=== PATIENT | male | born 1935 | race Caucasian/White ===

== ENCOUNTER 2017-03-27 02:50 | Emergency (ER) | payer OTHER ==
[2017-03-27 04:19] LABS: BLOOD UREA NITROGEN 23 mg/dl (7-18); CARBON DIOXIDE 26 mmol/L (21-32); CHLORIDE 110 mmol/L (98-107); GLUCOSE 92 mg/dl (70-99); POTASSIUM 4.1 mmol/L (3.5-5.1); SODIUM 142 mmol/L (136-145); URIC ACID 5.1 mg/dl (2.6-7.2)
[2017-03-27 04:19] LABS: MANUAL MICROSCOPIC REQUIRED? NO; REVIEW REQ? NO; URINE APPEARANCE CLEAR (CLEAR); URINE BILIRUBIN NEG (NEG); URINE COLOR YELLOW; URINE EPITHELIAL CELL AUTO 0-5 /lpf (0-5); URINE NITRITE NEG (NEG); URINE SPECIFIC GRAVITY 1.024 (1.000-1.030); UROBILINOGEN NEG (NEG); ZZUR CULT IF INDIC CLEAN CATCH NO
[2017-03-27 04:23] LABS: CALCIUM 8.6 mg/dl (8.5-10.1)
[2017-03-27 04:27] LABS: BASO % 0.4 %; BASO ABS # 0.02 K/uL (0-0.2); COMPLETE YES; EOS % 2.6 %; HEMATOCRIT 43.6 % (42-52); IG% 0.2 %; LYMPH % 24.9 %; LYMPH ABS # 1.24 K/uL (1.2-3.4); MEAN CELL VOLUME 91.4 fL (80-100); MEAN CORPUSCULAR HEMOGLOBIN 30.4 pg (25-34); MEAN CORPUSCULAR HGB CONC 33.3 g/dl (32-36); MEAN PLATELET VOLUME 10.9 fL (7.4-10.4); MONO % 15.7 %; NEUT % 56.2 %; PLATELET COUNT 192 K/uL (130-400); RED BLOOD COUNT 4.77 M/uL (4.7-6.1); WHITE BLOOD COUNT 4.98 K/uL (4.8-10.8)
--- NOTE | 2017-03-27 04:46 | EMERGENCY ROOM VISIT NOTE ---
History First contact with patient: 03:33 Chief Complaint: BACK PAIN Stated Complaint: BACK PAIN, STOMACH UPSET History of Present Illness The patient is a 81 year old male who presents to the Emergency Room with complaints of sudden onset of right flank pain described as aching, ranging in severity was 8/ 10 that is now completely resolved that occurred 1 hour ago. Patient took Motrin and then on his drive here the pain subsided. Patient states the past few days she's had some upset stomach but none currently. No history kidney stones. Patient denies chest pain, dyspnea, fever, chills, numbness, tingling, diaphoresis, radiating pain, fevers, injury to the area, light headedness or dizziness. No syncope. Patient was doing a lot of yard work today. He states is a very active addi. Review of Systems See HPI for pertinent positives & negatives. A total of 10 systems reviewed and were otherwise negative. Past Medical/Surgical History gout Social History Smoking Status: Never Smoker Smokeless Tobacco Use: No Drug Use: none Marital Status: Housing Status: lives with family Occupation Status: retired Physical Exam Physical Exam VITALS: Vitals are noted on the nurse's note and reviewed by myself. Vital signs hypertensive. GENERAL: Pleasant male, in no acute distress, nondiaphoretic, well-developed well-nourished. SKIN: The skin was without rashes, erythema, edema, or bruising. There is no tenting of the skin. Capillary reflex less than 2 seconds. HEAD: Normocephalic atraumatic. EARS: External auditory canals clear, tympanic membranes pearly martin without erythema or effusion bilaterally. EYES: Pupils equal round and reactive to light and accommodation. Conjunctivae without injection, sclerae without icterus. Extraocular movements intact. NOSE: Patent, turbinates without inflammation or discharge. MOUTH: Mucous membranes moist. Pharynx without erythema or exudate. Uvula midline. Airway patent. Tongue does not deviate. NECK: Supple without nuchal rigidity. No lymphadenopathy. No thyromegaly. Cervical spine is nontender. No JVD. HEART: Regular rate and rhythm LUNGS: Clear to auscultation bilaterally without wheezes, rales or rhonchi. No dullness to percussion. No retractions or accessory muscle use. ABDOMEN: Positive bowel sounds x 4. Normal tympanic percussion. Soft, nontender, without masses or organomegaly. Jamil sign negative. No guarding or rebound tenderness. MUSCULOSKELETAL: No muscle atrophy, erythema, or edema noted. No thoracic or lumbar tenderness on exam. No CVA tenderness. 5 out of 5 strength throughout NEURO: Patient was alert and oriented to person place and time. Normal sensation to light and sharp touch. No focal neurological deficits. Medical Decision & Procedures Laboratory Results 03/27/17 03:30 Red Blood Count 4.77, Mean Corpuscular Volume 91.4, Mean Corpuscular Hemoglobin 30.4, Mean Corpuscular Hemoglobin Concent 33.3, Mean Platelet Volume 10.9, Neutrophils (%) (Auto) 56.2, Lymphocytes (%) (Auto) 24.9, Monocytes (%) (Auto) 15.7, Eosinophils (%) (Auto) 2.6, Basophils (%) (Auto) 0.4, Neutrophils # (Auto ) 2.80, Lymphocytes # (Auto) 1.24, Monocytes # (Auto) 0.78, Eosinophils # (Auto ) 0.13, Basophils # (Auto) 0.02 03/27/17 03:34 Test 03/27/17 03:30 03/27/17 03:34 White Blood Count 4.98 K/uL (4.8-10.8) Red Blood Count 4.77 M/uL (4.7-6.1) Hemoglobin 14.5 g/dL (14.0-18.0) Hematocrit 43.6 % (42-52) Mean Corpuscular Volume 91.4 fL (80-100) Mean Corpuscular Hemoglobin 30.4 pg (25-34) Mean Corpuscular Hemoglobin Concent 33.3 g/dl (32-36) Platelet Count 192 K/uL (130-400) Mean Platelet Volume 10.9 fL (7.4-10.4) Neutrophils (%) (Auto) 56.2 % Lymphocytes (%) (Auto) 24.9 % Monocytes (%) (Auto) 15.7 % Eosinophils (%) (Auto) 2.6 % Basophils (%) (Auto) 0.4 % Neutrophils # (Auto) 2.80 K/uL (1.4-6.5) Lymphocytes # (Auto) 1.24 K/uL (1.2-3.4) Monocytes # (Auto) 0.78 K/uL (0.11-0.59) Eosinophils # (Auto) 0.13 K/uL (0-0.5) Basophils # (Auto) 0.02 K/uL (0-0.2) RDW Standard Deviation 44.0 fL (36.4-46.3) RDW Coefficient of Variation 13.3 % (11.5-14.5) Immature Granulocyte % (Auto) 0.2 % Immature Granulocyte # (Auto) 0.01 K/uL (0.00-0.02) Urine Color YELLOW Urine Appearance CLEAR (CLEAR) Urine pH 5.0 (4.5-7.5) Urine Specific [employer] 1.024 (1.000-1.030) Urine Protein NEG (NEG) Urine Glucose (UA) NEG (NEG) Urine Ketones NEG (NEG) Urine Occult Blood 3+ (NEG) Urine Nitrite NEG (NEG) Urine Bilirubin NEG (NEG) Urine Urobilinogen NEG (NEG) Urine Leukocyte Esterase NEG (NEG) Urine WBC (Auto) 1-5 /hpf (0-5) Urine RBC (Auto) >30 /hpf (0-4) Urine Hyaline Casts (Auto) 0 /lpf (0-5) Urine Epithelial Cells (Auto) 0-5 /lpf (0-5) Urine Bacteria (Auto) NEG (NEG) Anion Gap 6.0 mmol/L (3-11) Estimated GFR () 82.6 Estimated GFR (Non- 71.3 BUN/Creatinine Ratio 23.0 (10-20) Uric Acid 5.1 mg/dl (2.6-7.2) Calcium Level 8.6 mg/dl (8.5-10.1) ED Course Prior records/ancillary studies reviewed. Triage Nursing notes reviewed. Additional history obtained from the family. The patient's history was concerning for right flank pain. Differential diagnosis: Etiologies such as renal colic, appendicitis, diverticulitis, mesenteric ischemia, aortic pathology, infections, inflammatory bowel disease, PUD, biliary pathology, UTI, as well as others were entertained. Physical examination findings: As above. ER treatment provided: Patient was observed On reassessment the patient felt better. Diagnostic interpretation by me: The labs revealed stable H&H. Urinalysis revealed hematuria. There was no sign of UTI. Imaging studies: CT of the abdomen and pelvis as above. CT ABDOMEN & PELVIS: Impression: There is a 4 mm calculus within the right UPJ which causes mild hydronephrosis. No other calculi seen with the kidneys, ureters or urinary bladder. Additional findings: The visualized lower thorax is unremarkable. The liver, gallbladder, spleen, pancreas, and adrenal glands are unremarkable. The appendix is unremarkable. Noninflamed colonic diverticulosis. No acute osseous abnormality. Radiologist: Merritt Cuba MD It appears that the patient has isolated renal colic from a right sided stone. Patient was neurovascularly and neurologically intact. He is well-appearing. His pain was managed. He was advised to follow-up with urology in a few days or here in the ER sooner for severe pain, fevers, vomiting, worsening signs or symptoms or as needed. By the evaluation outlined above emergent etiologies such as appendicitis, diverticulitis, mesenteric ischemia, aortic pathology, infections, inflammatory bowel disease, PUD, biliary pathology, UTI, as well as others were deemed relatively unlikely. The pt informed about the findings as listed above. All questions were answered and pleased with the treatment. Return instructions were outlined and the patient was discharged in stable condition. Outpatient prescription management: Oxy IR 5mg 1-2 po Q4 hrs prn Zofran Referral: The pt was referred to [facility] for follow up care regarding their stone. or The patient was referred back to their primary care physician for follow-up in 2 to 3 days for a recheck of the current condition. Case reviewed with my attending Medical Decision As above Patient was found to have elevated blood pressure and was referred to their family doctor for recheck and further treatment. I attest that I have personally reviewed the patient's medications. Impression Primary Impression: Renal colic on right side Departure Information Dispostion Home / Self-Care Condition GOOD Referrals Brigitte Handley M.D. (PCP) Patient Instructions My [facility] Additional Instructions DO NOT drive, drink alcohol, operate machinery, or perform dangerous activities today. You were given medications in the ER that can affect your ability to safely function or operate a vehicle. Oxycodone Immediate Release (OxyIR) 5mg: Take 1 pill every four hours for pain. Avoid alcohol, operating machinery or dangerous equipment, working on ladders or roofs, DRIVING, or situations where being under the influence may be dangerous. It is recommended to use an dbji-bht-rvfjfua stool softener such as Colace, 100mg twice daily while taking this medication to avoid constipation. Zofran 4 mg: Take one every six hours as needed for nausea. Avoid alcohol, operating machinery or dangerous equipment, working on ladders or roofs, DRIVING , or situations where being under the influence may be dangerous. Ibuprofen(Motrin, Advil) may be used for fever or pain. Use 600mg every six hours as needed. Take with food. Avoid using more than 2400mg in a 24 hour period. Do not use 2400mg per day for more than three consecutive days without physician direction. Prolonged inappropriate use can lead to stomach upset or ulcers. This medication can be taken if you need to drive, work, or perform activities which may be dangerous when taking narcotic pain medication. (AND/OR) Acetaminophen(Tylenol) may be used for fever or pain. Use 1000mg every six hours as needed. Avoid using more than 4000mg in a 24 hour period. This medication can be taken if you need to drive, work, or perform activities which may be dangerous when taking narcotic pain medication. Strain your urine and collect all the stones or debris for the urologists. Rest and avoid strenuous activity until your stone passes and symptoms resolve. Drink plenty of fluids. Continue current medications. Return to the ER for worsening abdominal or back pain, vomiting, fevers, passing out, or as needed. Follow up with [facility] tomorrow, [phone], to arrange a visit.
[2017-03-27] MEDS ORDERED: OXYCODONE IR HOME PACK PO ONE (05:00)
[2017-03-27] MEDS ORDERED: ONDANSETRON HOME PACK 4MG OD TAB PO ONE (05:00)
[2017-03-27 05:05] VITALS: BP 156/76; PULSE 64; O2SAT 94
--- NOTE | 2017-03-27 05:10 | EMERGENCY ROOM VISIT NOTE ---
ED Visit Note First contact with patient: 03:33 I have personally evaluated and examined this patient. I agree with assessment and plan of Priscilla Huff PA-C.
--- NOTE | 2017-03-27 07:39 | DIAGNOSTIC IMAGING REPORT ---
ABDOMEN AND PELVIS CT WITHOUT CONTRAST CT DOSE: 699.56 mGy.cm HISTORY: Flank pain right flank pain TECHNIQUE: Multiaxial CT images of the abdomen and pelvis were performed without the use of intravenous and oral contrast according to the standard department stone protocol. COMPARISON STUDY: None. FINDINGS: Minimal bibasilar dependent atelectatic change. 4 mm nodular density anterior right middle lobe transaxial image 12. Liver spleen and pancreas are unremarkable. Left kidney is unremarkable. Right kidney shows mild hydronephrosis. There is a 4 mm partially obstructing calculus right ureteropelvic junction. The more distal aspects of the ureters are unremarkable. Bladder is midline. There are no contained calcifications. There are findings of chronic colonic diverticulosis. There is no evidence for acute diverticulitis. IMPRESSION: 1. 4 mm obstructing calculus right ureteropelvic pelvic junction. 2. Mild colonic diverticulosis with no evidence for diverticulitis. Electronically signed by: Sourav Mcneill M.D. 03/27/2017 7:38 AM Dictated Date/Time: 03/27/2017 7:36 AM
[2017-05-09] MEDS ORDERED: OXYC-57 PO (08:56)
[2017-05-19] MEDS ORDERED: MULT-1093 PO (18:05)
[2017-05-19] MEDS ORDERED: ALLO300T2 PO (18:05)
[2017-05-19] MEDS ORDERED: LUTE6CAP PO (18:05)
[2017-05-19] MEDS ORDERED: TAMS0.4C38 PO (18:06)
[2017-05-19] MEDS ORDERED: voltaren gel TD (18:07)
[2017-05-20] MEDS ORDERED: CIPR-255 PO (16:00)
[2017-05-20] MEDS ORDERED: PHEN-775 PO (16:00)
[2017-05-20] MEDS ORDERED: OXYC-57 PO (16:00)
[2017-05-26] MEDS ORDERED: DICL1GEL12 EX (09:46)
[2017-06-03] MEDS ORDERED: CIPR-255 PO (14:37)
[2017-06-03] MEDS ORDERED: HYDR-5688 PO (14:37)
== END 2017-03-27 05:05 | disposition home or self-care (01) ==
LOC: C.EDB 03:25
DX: N23 Unspecified renal colic (principal)

== ENCOUNTER 2017-04-23 04:23 | Emergency (ER) | payer OTHER ==
[~2017-04-23] VITALS: Ht 167.6 cm; Wt 72.6 kg
[2017-04-23 04:27] VITALS: TEMP 36.3; Ht 167.6 cm; Wt 72.6 kg
--- NOTE | 2017-04-23 04:49 | EMERGENCY ROOM VISIT NOTE ---
History Report prepared by Mica: Jim Heart Under the Supervision of: Dr. Antonieta Dasilva D.O. First contact with patient: 04:30 Chief Complaint: KIDNEY STONE Stated Complaint: KIDNEY STONE History of Present Illness The patient is a 81 year old male who presents to the Emergency Room with complaints of persistent right flank and right lower quadrant abdominal pain that he began to experience at 0000 this morning, 5 hours prior to arrival. He took an Oxycodone, and is experiencing relief at this time. The patient was in the Emergency Department on March 27 for right flank point and had a CT scan. This CT showed a 4 mm stone in the right UPJ. He not follow with urology following this diagnosis because the pain relieved itself. He is not sure if he passed the stone or not. He also complains of nausea this morning. He denies vomiting or urinary pain. Source of History: patient Onset: 5 hour RESEARCH EXECUTIVE Position: abdomen (RLQ), other (Right Flank) Timing: other (Persistent) Associated Symptoms: + nausea, + abdominal pain, No vomiting, No urinary symptoms Review of Systems See HPI for pertinent positives & negatives. A total of 10 systems reviewed and were otherwise negative. Past Medical & Surgical Medical Problems: (1) Gout Family History Family history omitted secondary to age. Social History Smoking Status: Never Smoker Drug Use: none Marital Status: Housing Status: lives with family Occupation Status: retired Current/Historical Medications Scheduled Allopurinol (Zyloprim), 150 MG PO DAILY Lutein (Lutein), 6 MG PO DAILY Multivitamin (Multivitamin), 1 TAB PO DAILY Allergies Coded Allergies: No Known Allergies (Unverified , 04/23/17) Physical Exam Vital Signs Date Time Temp Pulse Resp B/P (MAP) Pulse Ox O2 Delivery O2 Flow Rate FiO2 04/23/17 06:34 66 18 142/67 97 04/23/17 06:06 66 18 142/67 97 Room Air 04/23/17 04:27 36.3 64 20 191/79 97 Room Air Physical Exam HEENT: Head - normocephalic and atraumatic Pupils are equal, round, and reactive to light. Extraocular eye muscles are intact, and sclera are anicteric. Nose - moist nasal mucosa without discharge. Mouth - moist buccal mucosa. Oropharynx is nonerythematous and there is no tonsillar exudate or edema noted. Neck: Supple; no JVD, nuchal rigidity, cervical lymphadenopathy. Heart: Regular rate and rhythm. There is a normal S1 and S2 with no murmurs, clicks, or gallops appreciated. Lungs: Clear to auscultation bilaterally with no wheezes, rales, or rhonchi. Abdomen: Soft, completely nontender, nondistended, with good bowel sounds. There are no palpable pulsatile masses or hepatosplenomegaly. There is no guarding, rigidity, or rebound noted. Extremities: No evidence of cyanosis, clubbing, or edema. There are easily palpable peripheral pulses. Skin: warm and dry with good turgor and no rashes. Medical Decision & Procedures ER Provider Diagnostic Interpretation: Radiology results as stated below per my review and the radiologist's interpretation: US RENAL: Compared with CT abdomen and pelvis 03/27/2017 Mild right hydronephrosis and distended proximal ureter. 9 mm left renal cyst. No left hydronephrosis. Urinary Bladder is decompressed, ureteral jets are not visualized. Radiologist: Luz Elena Su M.D. Laboratory Results 04/23/17 04:40 Red Blood Count 4.78, Mean Corpuscular Volume 90.8, Mean Corpuscular Hemoglobin 31.0, Mean Corpuscular Hemoglobin Concent 34.1, Mean Platelet Volume 10.7, Neutrophils (%) (Auto) 81.6, Lymphocytes (%) (Auto) 8.8, Monocytes (%) (Auto) 8.8, Eosinophils (%) (Auto) 0.5, Basophils (%) (Auto) 0.1, Neutrophils # (Auto) 8.96, Lymphocytes # (Auto) 0.96, Monocytes # (Auto) 0.96, Eosinophils # (Auto) 0.05, Basophils # (Auto) 0.01 04/23/17 04:40 Test 04/23/17 04:40 White Blood Count 10.96 K/uL (4.8-10.8) Red Blood Count 4.78 M/uL (4.7-6.1) Hemoglobin 14.8 g/dL (14.0-18.0) Hematocrit 43.4 % (42-52) Mean Corpuscular Volume 90.8 fL (80-100) Mean Corpuscular Hemoglobin 31.0 pg (25-34) Mean Corpuscular Hemoglobin Concent 34.1 g/dl (32-36) Platelet Count 198 K/uL (130-400) Mean Platelet Volume 10.7 fL (7.4-10.4) Neutrophils (%) (Auto) 81.6 % Lymphocytes (%) (Auto) 8.8 % Monocytes (%) (Auto) 8.8 % Eosinophils (%) (Auto) 0.5 % Basophils (%) (Auto) 0.1 % Neutrophils # (Auto) 8.96 K/uL (1.4-6.5) Lymphocytes # (Auto) 0.96 K/uL (1.2-3.4) Monocytes # (Auto) 0.96 K/uL (0.11-0.59) Eosinophils # (Auto) 0.05 K/uL (0-0.5) Basophils # (Auto) 0.01 K/uL (0-0.2) RDW Standard Deviation 43.9 fL (36.4-46.3) RDW Coefficient of Variation 13.3 % (11.5-14.5) Immature Granulocyte % (Auto) 0.2 % Immature Granulocyte # (Auto) 0.02 K/uL (0.00-0.02) Urine Color YELLOW Urine Appearance CLEAR (CLEAR) Urine pH 5.0 (4.5-7.5) Urine Specific [employer] 1.020 (1.000-1.030) Urine Protein NEG (NEG) Urine Glucose (UA) NEG (NEG) Urine Ketones TRACE (NEG) Urine Occult Blood 2+ (NEG) Urine Nitrite NEG (NEG) Urine Bilirubin NEG (NEG) Urine Urobilinogen NEG (NEG) Urine Leukocyte Esterase NEG (NEG) Urine WBC (Auto) 1-5 /hpf (0-5) Urine RBC (Auto) 5-10 /hpf (0-4) Urine Hyaline Casts (Auto) 1-5 /lpf (0-5) Urine Epithelial Cells (Auto) 5-10 /lpf (0-5) Urine Bacteria (Auto) NEG (NEG) Anion Gap 5.0 mmol/L (3-11) Est Creatinine Clear Calc Drug Dose 45.0 ml/min Estimated GFR () 66.3 Estimated GFR (Non- 57.2 BUN/Creatinine Ratio 20.5 (10-20) Calcium Level 9.1 mg/dl (8.5-10.1) Laboratory results per my review. ED Course 0440: Past medical records reviewed. The patient was evaluated in room A2. A complete history and physical exam was performed. An IV lock was initiated and labs are drawn as above. The patient declined wanting anything for pain. He went for an ultrasound of the right renal collecting system. 629: Upon reevaluation, the patient is feeling well. I discussed findings and results with him. He verbalized agreement of the treatment plan. The patient was discharged home. Medical Decision The patient is a 81 year old male who presents to the Emergency Department with right flank and right lower quadrant abdominal pain. Differential diagnosis includes; pyelonephritis, ureteral colic, obstructive uropathy. Laboratory Results were reviewed and show; White blood cell count of 10.9, stable hemoglobin and hematocrit, BUN of 25, creatinine of 1.2, glucose of 117, Urinalysis shows 2+ blood, and 5-10 RBC The patient had been previously diagnosed with a right-sided kidney stone. This was approximately one month ago. After that episode of pain, the pain did not return until tonight. The patient's pain was severe and then suddenly resolved after arriving here in the emergency department. Ultrasound shows evidence of right-sided hydronephrosis and dilatation of the right ureter. No obvious stone was identified. This could be secondary to the opacity of the stone or the stone may have passed into the bladder. Reviewed these findings with the patient and his . He was instructed to use his oxycodone for any further pain and follow-up with urology if the pain persisted. Otherwise, if the pain never returns, the the past stone most likely passed into the bladder. Medication Reconcilliation Current Medication List: was personally reviewed by me Blood Pressure Screening Patient's blood pressure: Elevated blood pressure Blood pressure disposition: Elevated BP felt to be situational (High due to significant pain) Impression Primary Impression: Hydronephrosis of right kidney Scribe Attestation The scribe's documentation has been prepared under my direction and personally reviewed by me in its entirety. I confirm that the note above accurately reflects all work, treatment, procedures, and medical decision making performed by me. Departure Information Dispostion Home / Self-Care Referrals Brigitte Handley M.D. (PCP) Forms HOME CARE DOCUMENTATION FORM, IMPORTANT VISIT INFORMATION Patient Instructions My [facility] Additional Instructions if you have any recurrence of the pain on the right, please follow up with Urology. If the pain becomes severe and oxycodone does no help, return to the ER.
[2017-04-23 04:54] LABS: BASO % 0.1 %; BASO ABS # 0.01 K/uL (0-0.2); COMPLETE YES; EOS % 0.5 %; HEMATOCRIT 43.4 % (42-52); IG% 0.2 %; LYMPH % 8.8 %; LYMPH ABS # 0.96 K/uL (1.2-3.4); MEAN CELL VOLUME 90.8 fL (80-100); MEAN CORPUSCULAR HGB CONC 34.1 g/dl (32-36); MEAN PLATELET VOLUME 10.7 fL (7.4-10.4); MONO % 8.8 %; NEUT % 81.6 %; PLATELET COUNT 198 K/uL (130-400); RED BLOOD COUNT 4.78 M/uL (4.7-6.1); WHITE BLOOD COUNT 10.96 K/uL (4.8-10.8)
[2017-04-23 05:00] LABS: URINE APPEARANCE CLEAR (CLEAR); URINE BILIRUBIN NEG (NEG); URINE COLOR YELLOW; URINE NITRITE NEG (NEG); UROBILINOGEN NEG (NEG)
[2017-04-23 05:05] LABS: MANUAL MICROSCOPIC REQUIRED? NO; REVIEW REQ? NO
[2017-04-23 05:20] LABS: BUN/CREATININE RATIO 20.5 (10-20); CALCIUM 9.1 mg/dl (8.5-10.1); CREATININE 1.2 mg/dl (0.60-1.40)
[2017-04-23] MEDS ORDERED: ALLO300T2 PO (06:06)
[2017-04-23] MEDS ORDERED: MULT-506 PO (06:06)
[2017-04-23] MEDS ORDERED: LUTE6CAP PO (06:06)
[2017-04-23 06:34] VITALS: BP 142/67; PULSE 66; O2SAT 97
--- NOTE | 2017-04-23 06:46 | DIAGNOSTIC IMAGING REPORT ---
(RENAL)RETROPERITON COMP HISTORY: 81 years-old Male eval for right ureteral stone COMPARISON: CT abdomen and pelvis 03/27/2017 TECHNIQUE: Multiple real-time serial images of the kidneys and urinary bladder were obtained assessing grayscale appearance and color flow. FINDINGS: Right kidney measures 10.6 x 4.3 x 5.2 cm with volume of 122 mL. Proximal right ureter is again mildly distended and there is mild dilation of the pelvis and central calyces which appears similar from comparison study. The previously noted obstructing calculus however is not identified. There is mild lobulation of the renal parenchyma which is also mildly echogenic. Thin-walled cyst in the midpole left kidney is seen, 0.9 x 0.8 x 0.8 cm. Left kidney measures 10.2 x 4.5 x 3.7 cm with volume of 88 mL and demonstrates no calculus, mass or hydronephrosis. Renal parenchyma is mildly echogenic suggesting a component of medical renal disease. Urinary bladder is partially collapsed. Ureteral jets are not visualized. IMPRESSION: 1. Persistent mild right sided hydronephrosis without obstructing calculus identified. 2. Subcentimeter cyst of the midpole left kidney. 3. Partially collapsed urinary bladder. The above report was generated using voice recognition software. It may contain grammatical, syntax or spelling errors. Electronically signed by: Murray Hilton M.D. 04/23/2017 6:45 AM Dictated Date/Time: 04/23/2017 6:41 AM
[2017-05-09] MEDS ORDERED: OXYC-57 PO (08:56)
[2017-05-19] MEDS ORDERED: MULT-1093 PO (18:05)
[2017-05-19] MEDS ORDERED: LUTE6CAP PO (18:05)
[2017-05-19] MEDS ORDERED: ALLO300T2 PO (18:05)
[2017-05-19] MEDS ORDERED: TAMS0.4C38 PO (18:06)
[2017-05-19] MEDS ORDERED: voltaren gel TD (18:07)
[2017-05-20] MEDS ORDERED: CIPR-255 PO (16:00)
[2017-05-20] MEDS ORDERED: PHEN-775 PO (16:00)
[2017-05-20] MEDS ORDERED: OXYC-57 PO (16:00)
[2017-05-26] MEDS ORDERED: DICL1GEL12 EX (09:46)
[2017-06-03] MEDS ORDERED: HYDR-5688 PO (14:37)
[2017-06-03] MEDS ORDERED: CIPR-255 PO (14:37)
== END 2017-04-23 06:35 | disposition home or self-care (01) ==
LOC: C.EDB 04:24 → C.EDA 06:35
DX: N13.30 Unspecified hydronephrosis (principal); M10.9 Gout, unspecified; Z79.899 Other long term (current) drug therapy

== ENCOUNTER → 2017-04-29 | Outpatient (CLI) | payer OTHER ==
[~2017-04-29] MED LIST: ALLO300T2 PO; CIPR-255 PO; DICL1GEL12 EX; HYDR-5688 PO; LUTE6CAP PO; MULT-1093 PO; MULT-506 PO; OXYC-57 PO; PHEN-775 PO; TAMS0.4C38 PO; voltaren gel TD
== END | disposition home or self-care (01) ==
LOC: C.LABSPEC 17:06 → C.PATHSPEC 17:06
PROVIDERS: ATTEND Nurse Practitioner Adult Health
DX: N20.1 Calculus of ureter (principal)

== ENCOUNTER → 2017-04-29 | Outpatient (CLI) | payer OTHER ==
--- NOTE | 2017-04-29 13:02 | DIAGNOSTIC IMAGING REPORT ---
KUB HISTORY: N20.1 Right ureteral [id number] COMPARISON: Abdomen and pelvis CT 03/27/2017. FINDINGS: The bowel gas pattern is unremarkable. There are no dilated loops of small bowel to suggest an obstruction. There is a stable punctate stone within the lower pole of the right kidney. No left renal calculi identified. No bladder calculi. There is a 5 mm stone within the proximal right ureter adjacent to the right L2 transverse process. This is not significantly changed in position. No pneumoperitoneum or pneumatosis. IMPRESSION: 1. No significant change in the 5 mm stone within the right ureteropelvic junction. 2. Right-sided nephrolithiasis, unchanged. Electronically signed by: Reinier Ross M.D. 04/29/2017 1:01 PM Dictated Date/Time: 04/29/2017 12:59 PM
--- NOTE | 2017-04-29 13:06 | DIAGNOSTIC IMAGING REPORT ---
CHEST 2 VIEWS ROUTINE HISTORY: N20.1 Right ureteral [id number] COMPARISON: None. FINDINGS: The lungs are clear. Cardiac silhouette is normal in size. No pleural effusions. No pneumothorax. IMPRESSION: No acute process. Electronically signed by: Reinier Ross M.D. 04/29/2017 1:04 PM Dictated Date/Time: 04/29/2017 1:03 PM
== END | disposition home or self-care (01) ==
LOC: C.RAD1850 12:16
PROVIDERS: ATTEND Nurse Practitioner Adult Health
DX: N20.2 Calculus of kidney with calculus of ureter (principal)

== ENCOUNTER → 2017-04-29 | Outpatient (CLI) | payer OTHER | END | disposition home or self-care (01) | LOC: C.CPL 13:08 | PROVIDERS: ATTEND Nurse Practitioner Adult Health | DX: N20.1 Calculus of ureter (principal) ==

== ENCOUNTER → 2017-05-08 | Outpatient (CLI) | payer OTHER ==
--- NOTE | 2017-05-08 18:07 | DIAGNOSTIC IMAGING REPORT ---
KUB CLINICAL HISTORY: N20.1 Right ureteral calculus nephrocalcinosis COMPARISON STUDY: 04/29/2017 FINDINGS: The right ureteral calculus has passed several centimeters distal to its previous location. It is currently superior to the right transverse process of L4. Bowel pattern remains nonobstructive. IMPRESSION: Distal migration of a right ureteral calculus now located adjacent to the right transverse process of L4 The above report was generated using voice recognition software. It may contain grammatical, syntax or spelling errors. Electronically signed by: Sourav Mcneill M.D. 05/08/2017 6:06 PM Dictated Date/Time: 05/08/2017 6:05 PM
== END | disposition home or self-care (01) ==
LOC: C.RAD 17:46
PROVIDERS: ATTEND Nurse Practitioner Adult Health
DX: N20.1 Calculus of ureter (principal)

== ENCOUNTER → 2017-05-09 | Day surgery (SDC) | payer OTHER ==
[2017-05-01 08:58] VITALS: Ht 167.6 cm; Wt 68.2 kg
[~2017-05-09] VITALS: Ht 167.6 cm; Wt 68.2 kg
[~2017-05-09] MED LIST changes: +ATROPINE SULFATE 0.1 MG/ML 5ML SYR IV PRN; +CIPROFLOXACIN 400MG / D5W IV SCH; +DEXAMETHASONE SOD INJ 4 MG/ML VIAL IV PRN; +DEXAMETHASONE SOD INJ 4 MG/ML VIAL ONE; +EpHEDrine SULFATE INJ 50 MG/ML AMP IV PRN; +EpHEDrine SULFATE INJ 50 MG/ML AMP ONE; +FENTANYL CITRATE INJ 50 MCG/1 ML 2 ML VIAL IV PRN; +FENTANYL CITRATE INJ 50 MCG/1 ML 2 ML VIAL ONE; +KETOROLAC TROMETHAMINE 15 MG/ML VIAL IV. PRN; +LABETALOL HCL IV 5 MG/ML 20ML IV PRN; +LIDOCAINE HCL 2% 2 ML VIAL (20MG/ML) ONE; +METOCLOPRAMIDE HCL INJ 5 MG/ML 2 ML VIAL IV PRN; +MIDAZOLAM HCL 1 MG/ML 2ML VIAL ONE; +MoRPHine SULFATE 10 MG/ML CARP/VIAL IV PRN; +ONDANSETRON INJ 2 MG/ML 2 ML VIAL IV PRN; +ONDANSETRON INJ 2 MG/ML 2 ML VIAL ONE; +OXYCODONE/ACETAMINOPHEN 5-325 TAB PO PRN; +PHENYLEPHRINE 100MCG/ML 5ML SYR IV PRN; +PROPOFOL IV EMULSION 10 MG/ML 20 ML VIAL IV ONE
[2017-05-09] MEDS: LACTATED RINGER'S 1000ML 1,000 ML IV SCH ×2 (07:36→07:38)
--- NOTE | 2017-05-09 08:03 | History & Physical Bridge Note ---
H&P Re-Evaluation Bridge Note: I have examined the patient, reviewed the History & Physical and in the interval since the performance of the History & Physical I have noted the following changes of clinical significance: No changes noted
--- NOTE | 2017-05-09 08:57 | Discharge Instructions-[facility] ---
Discharge Instructions Date of Service May 09, 2017. Visit Reason for Visit: Stones Discharge Discharge Diagnosis / Problem: STONE Discharge Goals Goal(s): Therapeutic intervention Medications Stopped Medications Name(s): Ibuprophen Activity Recommendations Activity Limitations: resume your previous activity (TAKE IT EASY TODAY) Anesthesia . Post Anesthesia Instructions: If you have had General Anesthesia or IV Sedation: * Do not drive today. * Resume driving when surgeon permits. * Do not make important decisions or sign legal documents today. * Call surgeon for: 1. Temperature elevations greater than 101 degrees F. 2. Uncontrollable pain. 3. Excessive bleeding. 4. Persistent nausea and vomiting. 5. Medication intolerance (nausea, vomiting or rash). * For nausea and vomiting use only clear liquids such as: tea, soda, bouillon until nausea subsides, then gradually increase diet as tolerated. * If you have any concerns or questions, call your surgeon's office. If physician is unavailable and it is an emergency, call 911 or go to the nearest emergency room. . Instructions / Follow-Up Instructions / Follow-Up MEDICATIONS: Resume previous medications unless instructed otherwise by your surgeon. Resume pre-ESWL medication except for aspirin, coumadin or other blood thinners. __ Toradol 10 mg every 6 hours for initial pain. __ Lortab 5 mg 1-2 every 4 hours for pain. _X_ Percocet 5 mg 1-2 every 4 hours for pain. __ Macrodantin 50 mg x 3 a day. __ Flomax 1 tab daily one half (1/2) hour after supper. SPECIAL CARE INSTRUCTIONS: 1. Get KUB (x-ray) _X_ day before or day of office visit and bring x-ray to office __ get x-ray 2 days before and tell office you are getting x-rays when you call for the appointment. 2. Strain ALL urine. 3. Please call if you have a fever, chills, severe pain, or constant dribbling of urine. 4. Office phone number . FOLLOW UP VISIT: Please call the office to schedule a follow-up appointment at . Diet Recommendations Home Diet: resume previous diet Pending Studies Studies pending at discharge: no Medical Emergencies . Who to Call and When: Medical Emergencies: If at any time you feel your situation is an emergency, please call 911 immediately. . Non-Emergent Contact Non-Emergency issues call your: Urologist Call Non-Emergent contact if: temperature is above 101.5, your pain is not controlled . . "Provider Documentation" section prepared by Dereck Steele. . [place] Drug Monitoring Program Search Results: patient reviewed within database
--- NOTE | 2017-05-09 08:59 | [facility] Operative Report ---
Operative Report Operative Date May 09, 2017. Pre-Operative Diagnosis RIGHT URETERAL STONE Post-Operative Diagnosis SAME Procedure(s) Performed RIGHT ESWL Surgeon JOHN Placement Specialist Surgeon(s) NONE Estimated Blood Loss NONE Findings RIGHT URETERAL STONE Specimens NONE Drains NONE Anesthesia GENERAL Complication(s) None Disposition Recovery Room / PACU Indications RIGHT URETERAL STONE Description of Procedure Patient was identified in the preoperative holding area, appropriate informed consent was reviewed and completed and the patient was transported to the operating suite. Upon arrival appropriate preoperative antibiotics were administered and general anesthesia induced. The patient was placed in supine position and the stone was localized under fluoroscopy. A total of [_3000__] shocks were delivered to the stone. There appeared to be good fragmentation of the stone. Details of this procedure can be found on the [facility] information sheet. At the conclusion of the case the patient was extubated and taken to the PACU in stable condition. There were no complications. I attest to the content of the Intraoperative Record and any orders documented therein. Any exceptions are noted below.
--- NOTE | 2017-05-09 10:41 | Anesthesia Progress Nt - [facility] ---
Anesthesia Post Op Note Date & Time May 09, 2017 at 10:41 Vital Signs Pain Intensity: 0 Vital Signs Past 12 Hours Date Time Temp Pulse Resp B/P (MAP) Pulse Ox O2 Delivery O2 Flow Rate FiO2 05/09/17 10:18 36.3 55 16 162/73 (102) 97 Room Air 05/09/17 10:12 57 6 05/09/17 10:12 58 6 96 05/09/17 10:11 173/79 05/09/17 10:09 36.2 57 12 173/79 98 Room Air 05/09/17 10:07 60 17 98 05/09/17 10:07 59 17 05/09/17 10:06 165/95 05/09/17 10:02 58 19 97 05/09/17 10:02 59 19 05/09/17 10:01 162/77 05/09/17 09:57 60 18 97 05/09/17 09:57 60 18 05/09/17 09:56 152/75 05/09/17 09:52 62 25 05/09/17 09:52 63 25 99 05/09/17 09:51 159/81 05/09/17 09:47 55 19 98 05/09/17 09:47 55 19 05/09/17 09:46 147/65 05/09/17 09:42 55 17 98 05/09/17 09:42 57 17 05/09/17 09:41 142/63 05/09/17 09:37 58 18 98 05/09/17 09:37 58 18 05/09/17 09:36 141/68 05/09/17 09:32 61 148/68 98 05/09/17 09:32 61 05/09/17 09:32 36.4 61 20 148/68 98 Mask 6 05/09/17 07:09 36.6 58 16 186/79 (114) 97 Room Air Notes Mental Status: alert / awake / arousable, participated in evaluation Pt Amnestic to Procedure: Yes Nausea / Vomiting: adequately controlled Pain: adequately controlled Airway Patency, RR, SpO2: stable & adequate BP & HR: stable & adequate Hydration State: stable & adequate Anesthetic Complications: no major complications apparent
[2017-05-09 10:48] VITALS: BP 174/71; PULSE 55; O2SAT 95
== END | disposition home or self-care (01) ==
LOC: X.SURG 06:41
PROVIDERS: ATTEND Urology
DX: N20.1 Calculus of ureter (principal); G47.33 Obstructive sleep apnea (adult) (pediatric); M1A.9XX0 Chronic gout, unspecified, without tophus (tophi); Z87.891 Personal history of nicotine dependence; Z80.3 Family history of malignant neoplasm of breast

== ENCOUNTER → 2017-05-19 | Outpatient (CLI) | payer OTHER ==
[~2017-05-19] MED LIST changes: -ATROPINE SULFATE 0.1 MG/ML 5ML SYR IV PRN; -CIPROFLOXACIN 400MG / D5W IV SCH; -DEXAMETHASONE SOD INJ 4 MG/ML VIAL IV PRN; -DEXAMETHASONE SOD INJ 4 MG/ML VIAL ONE; -EpHEDrine SULFATE INJ 50 MG/ML AMP IV PRN; -EpHEDrine SULFATE INJ 50 MG/ML AMP ONE; -FENTANYL CITRATE INJ 50 MCG/1 ML 2 ML VIAL IV PRN; -FENTANYL CITRATE INJ 50 MCG/1 ML 2 ML VIAL ONE; -KETOROLAC TROMETHAMINE 15 MG/ML VIAL IV. PRN; -LABETALOL HCL IV 5 MG/ML 20ML IV PRN; -LIDOCAINE HCL 2% 2 ML VIAL (20MG/ML) ONE; -METOCLOPRAMIDE HCL INJ 5 MG/ML 2 ML VIAL IV PRN; -MIDAZOLAM HCL 1 MG/ML 2ML VIAL ONE; -MoRPHine SULFATE 10 MG/ML CARP/VIAL IV PRN; -ONDANSETRON INJ 2 MG/ML 2 ML VIAL IV PRN; -ONDANSETRON INJ 2 MG/ML 2 ML VIAL ONE; -OXYCODONE/ACETAMINOPHEN 5-325 TAB PO PRN; -PHENYLEPHRINE 100MCG/ML 5ML SYR IV PRN; -PROPOFOL IV EMULSION 10 MG/ML 20 ML VIAL IV ONE
--- NOTE | 2017-05-19 13:16 | DIAGNOSTIC IMAGING REPORT ---
KUB CLINICAL HISTORY: 81 years-old Male presenting with right ureteral calculus. TECHNIQUE: Single supine view of the abdomen was obtained. COMPARISON: 05/08/2017. FINDINGS: No change in position of the right ureteral calculus again located at L3-4. Bowel gas and stool degrade evaluation of the kidneys. Previously noted additional punctate calculi within the bilateral kidneys are not radiographically apparent. Nonobstructive bowel gas pattern. Degenerative changes of the spine. IMPRESSION: 1. No change in position of the right ureteral calculus located at L3-4. Electronically signed by: Louie Osorio M.D. 05/19/2017 1:15 PM Dictated Date/Time: 05/19/2017 1:13 PM
== END | disposition home or self-care (01) ==
LOC: C.RAD 12:51
PROVIDERS: ATTEND Nurse Practitioner Adult Health
DX: N20.1 Calculus of ureter (principal)

== ENCOUNTER → 2017-05-20 | Day surgery (SDC) | payer OTHER ==
[2017-05-19 18:07] VITALS: BMI 24.0
[~2017-05-20] VITALS: Ht 167.6 cm; Wt 69.0 kg
[~2017-05-20] MED LIST changes: +ATROPINE SULFATE 0.1 MG/ML 5ML SYR IV PRN; +CEFAZOLIN 2000 MG/60 ML D5W IV SCH; +CONRAY 30% 150ML BOTTLE ONE; +DEXAMETHASONE SOD INJ 4 MG/ML VIAL ONE; +EpHEDrine SULFATE INJ 50 MG/ML AMP IV PRN; +FENTANYL CITRATE INJ 50 MCG/1 ML 2 ML VIAL IV PRN; +FENTANYL CITRATE INJ 50 MCG/1 ML 2 ML VIAL ONE; +HYDROmorphone INJ 1 MG/ML SYR IV PRN; +LABETALOL HCL IV 5 MG/ML 20ML IV ONE; +LABETALOL HCL IV 5 MG/ML 20ML IV PRN; +LIDOCAINE HCL 2% 2 ML VIAL (20MG/ML) ONE; +MIDAZOLAM HCL 1 MG/ML 2ML VIAL ONE; -MULT-506 PO; +NURSING VERBAL MED ORDER ONE; +ONDANSETRON INJ 2 MG/ML 2 ML VIAL IV PRN; +ONDANSETRON INJ 2 MG/ML 2 ML VIAL ONE; +PROPOFOL IV EMULSION 10 MG/ML 20 ML VIAL IV ONE
[2017-05-20 12:47] VITALS: BP 162/73; PULSE 67; TEMP 36.4; O2SAT 98; BMI 24.0
[2017-05-20 12:55] VITALS: BP 162/73; TEMP 36.4; O2SAT 98; Ht 167.6 cm; Wt 69.0 kg
--- NOTE | 2017-05-20 16:51 | [facility] Operative Report ---
Operative Report Operative Date May 20, 2017. Pre-Operative Diagnosis Right ureteral calculus Post-Operative Diagnosis Right ureteral calculus Procedure(s) Performed Meatal/urethral dilation; Cystoscopy, Right Ureteroscopy, Right Ureteral Stent Placement ([id number]) Surgeon Dr. Shah Assembler Gold Frame Surgeon(s) none Estimated Blood Loss 5 cc Findings Meatal stenosis; right midureteral stone - easily seen under fluoroscopy; tight right ureter, but no strictures Specimens none per surgeon Drains 6 Albanian by 26 cm Anesthesia Gen. Complication(s) None Disposition Recovery Room / PACU (stable) Indications Right ureteral stone Description of Procedure Ankit Grullon was identified in the preoperative holding area, appropriate informed consents were reviewed and completed, and the patient was transported to the operating suite. Upon arrival he received appropriate preoperative antibiotics in the form of Ancef. Adequate general anesthesia was achieved, and the patient was placed in dorsal lithotomy position where he was sterilely prepped and draped in standard fashion. To begin the case I attempted to pass a 22 Albanian cystoscope. Unfortunately his meatus was somewhat tight on unable to accommodate the scope. Utilizing male urethral sounds are was able to gently dilate the urethra to 24 Albanian. Scope subsequent passed easily. Inspection of the urethra revealed healthy tissue without any evidence of stricture disease. Prostate was moderately enlarged with a somewhat high bladder neck. Inspection of the bladder was carried out utilizing a 30 and 70 lens. No mucosal abnormalities were appreciated. There was a punctate stone in the bladder. Ureteral orifices weren't orthotopic position. Following my inspection, I turned my attention to the right ureteral orifice. I cannulated this with a sensor wire and a 10 Albanian double-lumen catheter. Fluoroscopic evaluation prior to passage of the wire revealed a stone within the mid ureter. I observed the wire passed the stone under fluoroscopy. Then advance the 10 Albanian double-lumen catheter maximally. Of note the ureter was quite tight as this passed. A second wire was placed. With the 10 Albanian placed as high up the ureter is possible, I was still proximally 5 cm below the stone. I left the 10 Albanian double-lumen catheter in place for several moments before withdrawing it, hoping to allow some passive dilation of the ureter. Utilizing one wire as a working wire and reserving the other as a safety wire, I passed a flexible ureteroscope. Under fluoroscopic guidance this advanced into the distal ureter without difficulty and move to the mid ureter before feeling resistance. Resistance was felt in the rough location of the maximal extent of the 10 Albanian double-lumen catheter. At that time I attached the camera and inspected the ureter. There were no strictures appreciated. Mucosa was healthy in appearance. I was unable, however, to advance the scope further. I performed a careful exit ureteroscopy revealing very healthy-appearing ureteral mucosa through the distal ureter. I attempted to repassed a 10 Albanian double-lumen catheter without the cystoscope however I was still unable to reach the stone. At this time I elected to place a ureteral stent and allow the ureter to dilate before returning for definitive surgery. A 6 Albanian 26 cm double-J stent was placed without difficulty although the ureter was palpably tight as I passed this. A good curl was seen within the kidney as well as the bladder. I decompressed the bladder and removed all equipment. Patient was extubated and taken to the PACU in stable condition. I attest to the content of the Intraoperative Record and any orders documented therein. Any exceptions are noted below.
--- NOTE | 2017-05-20 16:52 | Discharge Instructions ---
Discharge Instructions Date of Service May 20, 2017. Admission Reason for Admission: STONE Discharge Discharge Diagnosis / Problem: stone Discharge Goals Goal(s): Decrease discomfort, Improve function, Increase independence, Improve disease control Activity Recommendations Activity Limitations: resume your previous activity Lifting Limitations: none Exercise/Sports Limitations: none May Resume Sexual Activity: when tolerated Shower/Bathe: no limitations Driving or Machine Use: no limitations . Instructions / Follow-Up Instructions / Follow-Up Dr. Shah's office will contact you to arrange for your next procedure. Discharge Diet Recommended Diet: Regular Diet Procedures Procedures Performed: Meatal/urethral dilation; Cystoscopy, Right Ureteroscopy, Right Ureteral Stent Placement ([id number]) Pending Studies Studies pending at discharge: no Medical Emergencies . Who to Call and When: Medical Emergencies: If at any time you feel your situation is an emergency, please call 911 immediately. . Non-Emergent Contact Non-Emergency issues call your: Urologist Call Non-Emergent contact if: you have a fever, temperature is above 101.5, your pain is not controlled, your pain is worsening . . "Provider Documentation" section prepared by Hayden Sandoval. . VTE Core Measure Inpt VTE Proph given/why not?: Treatment not indicated
--- NOTE | 2017-05-20 17:24 | Anesthesiology Progress Note ---
Anesthesia Post Op Note Date & Time May 20, 2017 at 17:24 Vital Signs Pain Intensity: 0 Vital Signs Past 12 Hours Date Time Temp Pulse Resp B/P (MAP) Pulse Ox O2 Delivery O2 Flow Rate FiO2 05/20/17 17:16 59 16 175/82 97 Room Air 05/20/17 17:06 62 16 204/89 98 Oxymask 10 05/20/17 16:56 16 168/76 98 Oxymask 10 05/20/17 16:46 36.2 58 16 149/65 98 Oxymask 10 05/20/17 12:55 36.4 18 162/73 (102) 98 Room Air 05/20/17 12:47 36.4 67 18 162/73 (102) 98 Room Air Notes Mental Status: alert / awake / arousable, participated in evaluation Pt Amnestic to Procedure: Yes Nausea / Vomiting: adequately controlled Pain: adequately controlled Airway Patency, RR, SpO2: stable & adequate BP & HR: stable & adequate Hydration State: stable & adequate Anesthetic Complications: no major complications apparent
[2017-05-20 17:40] VITALS: BP 184/88; PULSE 62; TEMP 36.7; O2SAT 96
[2017-05-20 18:10] VITALS: BP 168/76; PULSE 64; O2SAT 98
--- NOTE | 2017-05-20 18:15 | DIAGNOSTIC IMAGING REPORT ---
KUB HISTORY: Right ureteral stent placement FLUOROSCOPY TIME: 39 seconds. FINDINGS: 2 fluoroscopic spot images were submitted for review. Images demonstrate placement of a right ureteral stent. Only the proximal portion of the stent is identified and appears to be in good position. IMPRESSION: Fluoroscopy provided for right ureteral stent placement. Electronically signed by: Reinier Ross M.D. 05/20/2017 6:14 PM Dictated Date/Time: 05/20/2017 6:13 PM
[2017-05-20 18:40] VITALS: BP 168/88; PULSE 66; TEMP 36.7; O2SAT 99
== END | disposition home or self-care (01) ==
LOC: C.ACU 12:23
PROVIDERS: ATTEND Urology
DX: N20.1 Calculus of ureter (principal); Z87.891 Personal history of nicotine dependence; Z80.3 Family history of malignant neoplasm of breast

== ENCOUNTER → 2017-05-23 | Outpatient (CLI) | payer OTHER ==
[~2017-05-23] MED LIST changes: -ATROPINE SULFATE 0.1 MG/ML 5ML SYR IV PRN; -CEFAZOLIN 2000 MG/60 ML D5W IV SCH; -CONRAY 30% 150ML BOTTLE ONE; -DEXAMETHASONE SOD INJ 4 MG/ML VIAL ONE; -EpHEDrine SULFATE INJ 50 MG/ML AMP IV PRN; -FENTANYL CITRATE INJ 50 MCG/1 ML 2 ML VIAL IV PRN; -FENTANYL CITRATE INJ 50 MCG/1 ML 2 ML VIAL ONE; -HYDROmorphone INJ 1 MG/ML SYR IV PRN; -LABETALOL HCL IV 5 MG/ML 20ML IV ONE; -LABETALOL HCL IV 5 MG/ML 20ML IV PRN; -LIDOCAINE HCL 2% 2 ML VIAL (20MG/ML) ONE; -MIDAZOLAM HCL 1 MG/ML 2ML VIAL ONE; -NURSING VERBAL MED ORDER ONE; -ONDANSETRON INJ 2 MG/ML 2 ML VIAL IV PRN; -ONDANSETRON INJ 2 MG/ML 2 ML VIAL ONE; -PROPOFOL IV EMULSION 10 MG/ML 20 ML VIAL IV ONE
[2017-05-23 13:18] LABS: BASO % 0.2 %; BASO ABS # 0.01 K/uL (0-0.2); COMPLETE YES; EOS % 2.8 %; HEMATOCRIT 42.1 % (42-52); IG% 0.2 %; LYMPH % 19.9 %; LYMPH ABS # 1.23 K/uL (1.2-3.4); MEAN CELL VOLUME 89.4 fL (80-100); MEAN CORPUSCULAR HEMOGLOBIN 30.1 pg (25-34); MEAN CORPUSCULAR HGB CONC 33.7 g/dl (32-36); MEAN PLATELET VOLUME 11.1 fL (7.4-10.4); MONO % 15.2 %; NEUT % 61.7 %; PLATELET COUNT 205 K/uL (130-400); RED BLOOD COUNT 4.71 M/uL (4.7-6.1); WHITE BLOOD COUNT 6.17 K/uL (4.8-10.8)
[2017-05-23 13:54] LABS: BLOOD UREA NITROGEN 19 mg/dl (7-18); BUN/CREATININE RATIO 14.6 (10-20); CARBON DIOXIDE 28 mmol/L (21-32); CHLORIDE 106 mmol/L (98-107); GLUCOSE 91 mg/dl (70-99); POTASSIUM 3.9 mmol/L (3.5-5.1); SODIUM 142 mmol/L (136-145)
== END | disposition home or self-care (01) ==
LOC: C.LAB1850 11:43
PROVIDERS: ATTEND Urology
DX: N20.1 Calculus of ureter (principal)

== ENCOUNTER → 2017-05-27 | Outpatient (CLI) | payer OTHER ==
[~2017-05-27] MED LIST changes: -voltaren gel TD
--- NOTE | 2017-05-27 14:02 | DIAGNOSTIC IMAGING REPORT ---
KUB HISTORY: N20.1 Right ureteral [id number] COMPARISON: KUB 05/19/2017. FINDINGS: The bowel gas pattern is unremarkable. There are no dilated loops of small bowel to suggest an obstruction. Interval placement of a right ureteral stent which appears be in good position. No ureteral calculi are identified. No left renal calculi. There is a 5 mm stone within the lower pole of the right kidney. This likely represents the stone that was previously identified within the right ureter. No pneumoperitoneum or pneumatosis. IMPRESSION: 1. The right ureteral stent appears in good position. 2. The 5 mm right ureteral stone seen on the prior study now resides within the lower pole of the right kidney. Electronically signed by: Reinier Ross M.D. 05/27/2017 2:01 PM Dictated Date/Time: 05/27/2017 1:59 PM
== END | disposition home or self-care (01) ==
LOC: C.RAD 13:38
PROVIDERS: ATTEND Urology
DX: N20.1 Calculus of ureter (principal)

== ENCOUNTER 2017-06-03 11:41 | Day surgery (SDC) | payer OTHER ==
[2017-05-26 09:46] VITALS: BMI 24.0
[~2017-06-03] VITALS: Ht 167.6 cm; Wt 69.0 kg
[~2017-06-03 11:41] MED LIST changes: -CIPR-255 PO; +CIPROFLOXACIN / D5W 400 MG IV SCH; -HYDR-5688 PO; +LACTATED RINGER'S 1000ML 1,000 ML IV SCH
[2017-06-03 12:34] VITALS: BP 178/79; PULSE 72; TEMP 36.7; O2SAT 97; Ht 167.6 cm; Wt 69.0 kg
[2017-06-03] MEDS ORDERED: FENTANYL CITRATE INJ 50 MCG/1 ML 2 ML VIAL ONE ×2 (13:35→14:08)
[2017-06-03] MEDS ORDERED: CONRAY 30% 150ML BOTTLE ONE (13:58)
[2017-06-03] MEDS ORDERED: PROPOFOL IV EMULSION 10 MG/ML 20 ML VIAL IV ONE (14:07)
[2017-06-03] MEDS ORDERED: LIDOCAINE HCL 2% 2 ML VIAL (20MG/ML) ONE (14:07)
[2017-06-03] MEDS ORDERED: ONDANSETRON INJ 2 MG/ML 2 ML VIAL ONE (14:08)
[2017-06-03] MEDS ORDERED: EpHEDrine SULFATE 50MG/5ML SYR ONE (14:15)
[2017-06-03] MEDS ORDERED: EpHEDrine SULFATE INJ 50 MG/ML AMP IV PRN (14:15)
[2017-06-03] MEDS ORDERED: FENTANYL CITRATE INJ 50 MCG/1 ML 2 ML VIAL IV PRN (14:15)
[2017-06-03] MEDS ORDERED: ATROPINE SULFATE 0.1 MG/ML 5ML SYR IV PRN (14:15)
[2017-06-03] MEDS ORDERED: HYDR-5688 PO (14:37)
[2017-06-03] MEDS ORDERED: CIPR-255 PO (14:37)
[2017-06-03] MEDS ORDERED: SODIUM CHLORIDE 0.9% 1000ML 1,000 ML IV SCH (14:41)
--- NOTE | 2017-06-03 14:41 | Discharge Instructions ---
Discharge Instructions Date of Service Jun 03, 2017. Admission Reason for Admission: STONE Discharge Discharge Diagnosis / Problem: stone Discharge Goals Goal(s): Decrease discomfort, Improve function, Improve disease control, Prevent Disease Progression Activity Recommendations Activity Limitations: resume your previous activity Lifting Limitations: none Exercise/Sports Limitations: none May Resume Sexual Activity: after follow-up appointment Shower/Bathe: no limitations Driving or Machine Use: resume 1 day after discharge . Instructions / Follow-Up Instructions / Follow-Up Please come to Dr. Shah's office on , 06/05/17 at 11:15 to have your stent removed. Discharge Diet Recommended Diet: Regular Diet Procedures Procedures Performed: Cystoscopy, Right Ureteroscopy, Laser Lithotripsy; Stent Exchange Pending Studies Studies pending at discharge: no Medical Emergencies . Who to Call and When: Medical Emergencies: If at any time you feel your situation is an emergency, please call 911 immediately. . Non-Emergent Contact Non-Emergency issues call your: Urologist Call Non-Emergent contact if: you have a fever, temperature is above 101.5, your pain is not controlled, your pain is worsening . . "Provider Documentation" section prepared by Hayden Sandoval. . VTE Core Measure Inpt VTE Proph given/why not?: Treatment not indicated [place] Drug Monitoring Program Search Results: patient reviewed within database, no issues identified
[2017-06-03] MEDS ORDERED: HYDROCODONE/ACETAMOPHEN 5/325MG TAB PO PRN ×2 (14:45)
--- NOTE | 2017-06-03 15:04 | [facility] Operative Report ---
Operative Report Operative Date Jun 03, 2017. Pre-Operative Diagnosis Right nephrolithiasis Post-Operative Diagnosis same as preop Procedure(s) Performed Cystoscopy, Right Ureteroscopy, Laser Lithotripsy; Stent Exchange( [id number]) Surgeon Dr. Shah Jockey Room Custodian Surgeon(s) none Estimated Blood Loss 0 ML Findings Right renal calculus Specimens none Drains [id number] Anesthesia Gen. Complication(s) None Disposition Recovery Room / PACU (stable) Indications Previous right ureteral calculus, move retrograde in the kidney by his previous stent placement Description of Procedure The patient was identified in the preoperative holding area, appropriate informed consent reviewed and completed, and the patient was transported to the operating suite. Upon arrival to received appropriate preoperative antibiotics in the form of ciprofloxacin. Adequate general anesthesia was achieved and the patient was placed in dorsal lithotomy position where he was sterilely prepped and draped in standard fashion. I begin the case by passing a 22 Cameroonian cystoscope with 30 lens. Inspection revealed no evidence of stricture disease. Prostate was moderately enlarged. Inspection of the bladder revealed a healthy-appearing bladder with a right ureteral stent easily seen protruding from the right ureteral orifice. I grasped the distal end of the stent, and withdrew to the urethral meatus. I intubated the stent with a sensor wire and utilizing fluoroscopy I guided this wire to the kidney. I then placed a 10 Cameroonian double-lumen catheter over the wire and inserted a second wire. Reserving one wire as a safety wire and the other as a working wire, I advanced a flexible ureteroscope without difficulty to the level of the kidney. Full renoscopy was then carried out. I found a single dark appearing calculus in the lower pole of the kidney. There is no inflammation or bleeding. A 200 laser fiber was passed through the scope and laser lithotripsy commenced. The stone was fragmented into pieces felt safe for spontaneous passage. I performed a repeat renoscopy followed by a very careful exit ureteroscopy revealing no other large retained fragments. I concluded the case by placing a 6 Cameroonian by 26 cm double-J ureteral stent with a string attached. Bladder was decompressed, and the case concluded. Patient was extubated and taken to the PACU in stable condition. I attest to the content of the Intraoperative Record and any orders documented therein. Any exceptions are noted below.
--- NOTE | 2017-06-03 15:25 | Anesthesiology Progress Note ---
Anesthesia Post Op Note Date & Time Jun 03, 2017 at 15:24 Vital Signs Pain Intensity: 0 Vital Signs Past 12 Hours Date Time Temp Pulse Resp B/P (MAP) Pulse Ox O2 Delivery O2 Flow Rate FiO2 06/03/17 15:23 36.0 06/03/17 15:16 179/82 06/03/17 15:14 72 17 96 06/03/17 15:14 73 17 06/03/17 15:12 162/89 06/03/17 15:11 175/92 06/03/17 15:09 73 19 06/03/17 15:09 74 19 95 06/03/17 15:06 176/84 06/03/17 15:04 75 26 06/03/17 15:04 72 26 96 06/03/17 15:03 73 26 96 06/03/17 15:03 74 26 06/03/17 15:01 157/83 06/03/17 14:58 73 22 06/03/17 14:58 72 22 99 06/03/17 14:56 171/87 06/03/17 14:53 80 14 06/03/17 14:53 80 14 100 06/03/17 14:52 78 16 99 06/03/17 14:52 80 16 06/03/17 14:51 143/72 06/03/17 14:47 63 20 99 06/03/17 14:47 64 20 06/03/17 14:46 141/67 06/03/17 14:43 136/64 06/03/17 14:42 36.1 65 12 136/64 99 Oxymask 10 06/03/17 12:34 36.7 72 20 178/79 (112) 97 Room Air Notes Mental Status: alert / awake / arousable, participated in evaluation Pt Amnestic to Procedure: Yes Nausea / Vomiting: adequately controlled Pain: adequately controlled Airway Patency, RR, SpO2: stable & adequate BP & HR: stable & adequate Hydration State: stable & adequate Anesthetic Complications: no major complications apparent
[2017-06-03 15:30] VITALS: BP 151/71; PULSE 70; TEMP 36.5; O2SAT 96
--- NOTE | 2017-06-03 15:59 | DIAGNOSTIC IMAGING REPORT ---
KUB HISTORY: Right stent placement. FLUOROSCOPY TIME: 16 seconds. FINDINGS: 5 fluoroscopic spot images were submitted for review. Initial images demonstrate a guidewire within the right ureter placed in a retrograde fashion. Lithotripsy was performed. This is followed by placement of a right ureteral stent. Only the proximal portion of the stent is visualized but appears to be in good position. IMPRESSION: Fluoroscopy provided for right ureteral stent placement. Electronically signed by: Reinier Ross M.D. 06/03/2017 2:51 PM Dictated Date/Time: 06/03/2017 2:50 PM
[2017-06-03 16:00] VITALS: BP 173/76; PULSE 67; TEMP 36.7; O2SAT 95
== END 2017-06-03 16:25 | disposition home or self-care (01) ==
LOC: C.ACU 11:41
PROVIDERS: ATTEND Urology
DX: N20.1 Calculus of ureter (principal); Z79.1 Long term (current) use of non-steroidal anti-inflammatories (NSAID); Z80.3 Family history of malignant neoplasm of breast; Z87.891 Personal history of nicotine dependence

== ENCOUNTER → 2017-06-03 | Outpatient (CLI) | payer OTHER ==
[~2017-06-03] MED LIST changes: -PHEN-775 PO
--- NOTE | 2017-06-03 13:03 | DIAGNOSTIC IMAGING REPORT ---
KUB HISTORY: N20.1 Right ureteral [id number] COMPARISON: KUB 05/27/2017. FINDINGS: The bowel gas pattern is unremarkable. There are no dilated loops of small bowel to suggest an obstruction. Stable 5 mm stone within the lower pole the right kidney. The right ureteral stent is in position. No ureteral or bladder calculi. No left renal calculi. No pneumoperitoneum or pneumatosis. IMPRESSION: 1. Stable 5 mm stone within the lower pole of the right kidney. 2. The right ureteral stent is in good position. No ureteral calculi. Electronically signed by: Reinier Ross M.D. 06/03/2017 1:01 PM Dictated Date/Time: 06/03/2017 1:01 PM
== END | disposition home or self-care (01) ==
LOC: C.RAD 11:39
PROVIDERS: ATTEND Nurse Practitioner Adult Health
DX: N20.1 Calculus of ureter (principal)

== ENCOUNTER → 2017-08-15 | Outpatient (CLI) | payer OTHER ==
[~2017-08-15] MED LIST changes: +CIPR-255 PO; -CIPROFLOXACIN / D5W 400 MG IV SCH; +HYDR-5688 PO; -LACTATED RINGER'S 1000ML 1,000 ML IV SCH; -OXYC-57 PO
[2017-08-15 13:13] LABS: ALT/SGPT 19 U/L (12-78); AST/SGOT 25 U/L (15-37); BLOOD UREA NITROGEN 24 mg/dl (7-18); BUN/CREATININE RATIO 23.4 (10-20); CARBON DIOXIDE 26 mmol/L (21-32); CHLORIDE 105 mmol/L (98-107); CHOLESTEROL 176 mg/dl (0-200); CREATININE 1.03 mg/dl (0.60-1.40); GLUCOSE,FASTING 94 mg/dl (70-99); POTASSIUM 4.2 mmol/L (3.5-5.1); SODIUM 140 mmol/L (136-145); TRIGLYCERIDES 98 mg/dl (0-150); VERY LOW DENSITY LIPOPROT CALC 20 mg/dl
[2017-08-15 13:14] LABS: ALB/GLOB RATIO 1.2 (0.9-2); ALKALINE PHOSPHATASE 89 U/L (45-117); CHOLESTEROL/HDL RATIO 3.6; HDL CHOLESTEROL 49 mg/dl; LDL CHOLESTEROL CALCULATED 107 mg/dl
== END | disposition home or self-care (01) ==
LOC: C.LABPBG 08:27
PROVIDERS: ATTEND Family Medicine
DX: E78.1 Pure hyperglyceridemia (principal)